=== PATIENT | female | born 1955 | race Caucasian/White ===

== ENCOUNTER 2016-11-27 18:32 | Emergency (ER) | payer OTHER ==
[~2016-11-27] VITALS: Ht 172.7 cm; Wt 49.3 kg
[~2016-11-27 18:32] MED LIST: AMBIEN10 MG PO; AMBIEN5 M1 PO; BABY ASPIRIN81 M1 PO; BENICAR5 MG PO; CARDIZEM30 MG PO; COLACE100 MG PO; CRESTOR10 MG PO; CRESTOR5 MG PO; Cipro PO; FLUOXETINE HCL10 MG PO; HABITROL,NICODE21 MG TD; LIDODERM 5% P1 PATCH TD; LISINOPRIL20 MG PO; PERCOCET 5/31 TABLET PO; PROTONIX40 MG PO; PROZAC40 MG PO; PROzac PO; ROXICODONE5 MG PO; SKELAXIN800 MG PO; TAZTIA XT180 M1 PO; TAZTIA XT360 MG PO; Zocor PO; oxyCODONE PO
[2016-11-27 19:34] VITALS: BP 153/74
[2016-11-27 20:43] LABS: HEMATOCRIT 50.5 % (36.0-46.0); MCH 31.2 PG (29.0-34.0); MCHC 33.1 G/DL (30.0-36.0); MCV 94.4 FL (83-99); PLATELET COUNT 231 K/uL (156-360); RBC DIS.WIDTH-CV 13.2 % (11.8-14.6); RBC DIS.WIDTH-SD 46.1 % (39-53); RED BLOOD COUNT 5.35 M/uL (3.80-5.20); WHITE BLOOD COUNT 8.2 K/uL (4.1-10.2)
[2016-11-27 20:54] LABS: CHLORIDE 108 mEq/L (99-109); POTASSIUM 4.2 mEq/L (3.7-5.4); SODIUM 142 mEq/L (136-147)
[2016-11-27 20:56] LABS: GLUCOSE 74 mg/dL (70-99)
[2016-11-27 20:57] LABS: ANION GAP 9 MEQ/L (2-14)
[2016-11-27 20:58] LABS: TOTAL BILIRUBIN 0.6 mg/dL (0.0-1.0)
[2016-11-27 20:59] LABS: ALKALINE PHOSPHATASE 110 IU/L (3-129)
[2016-11-27 21:00] LABS: GFR ESTIMATE (CALCULATED) > 59 mL/min/
[2016-11-27 21:01] LABS: UREA NITROGEN (BUN) 13 mg/dL (9-23)
== END 2016-11-27 21:05 | disposition left against medical advice (07) ==
LOC: EME 18:32
DX: R53.1 Weakness (principal); Z53.21 Procedure and treatment not carried out due to patient leaving prior to being seen by health care provider
CPT/HCPCS: 80053; 81003; 85027

== ENCOUNTER 2017-03-14 12:04 | Emergency (ER) | payer OTHER ==
[~2017-03-14] VITALS: Ht 172.7 cm; Wt 49.6 kg
[2017-03-14 13:14] LABS: HEMATOCRIT 30.6 % (36.0-46.0); MCH 31.1 PG (29.0-34.0); MCHC 32.4 G/DL (30.0-36.0); MCV 96.2 FL (83-99); MEAN PLAT.VOLUME 11.1 uM^3 (9.5-12.4); PLATELET COUNT 231 K/uL (156-360); RBC DIS.WIDTH-CV 12.7 % (11.8-14.6); RBC DIS.WIDTH-SD 44.9 % (39-53); RED BLOOD COUNT 3.18 M/uL (3.80-5.20); WHITE BLOOD COUNT 13.3 K/uL (4.1-10.2)
[2017-03-14 13:23] LABS: CHLORIDE 107 mEq/L (99-109); POTASSIUM 5.2 mEq/L (3.7-5.4); SODIUM 133 mEq/L (136-147)
[2017-03-14 13:25] LABS: GLUCOSE 114 mg/dL (70-99)
[2017-03-14 13:26] LABS: ANION GAP 7 MEQ/L (2-14)
[2017-03-14 13:29] LABS: GFR ESTIMATE (CALCULATED) > 59 mL/min/
[2017-03-14 13:30] LABS: UREA NITROGEN (BUN) 34 mg/dL (9-23)
[2017-03-14 13:34] LABS: TOTAL BILIRUBIN 0.4 mg/dL (0.0-1.0)
[2017-03-14 13:35] LABS: ALKALINE PHOSPHATASE 78 IU/L (3-129)
[2017-03-14 13:37] LABS: DIRECT BILIRUBIN 0.2 mg/dL (0.0-0.3)
[2017-03-14 13:38] LABS: LIPASE 2 U/L (1.0-51.0)
[2017-03-14 14:06] LABS: TROP-I INTERPRETATION NEGATIVE; TROPONIN-I 0.02 ng/mL (0.0-0.30)
[2017-03-14 18:11] VITALS: BP 100/46
== END 2017-03-14 18:13 | disposition short-term general hospital (02) ==
LOC: EME 12:04
DX: J18.9 Pneumonia, unspecified organism (principal); J44.0 Chronic obstructive pulmonary disease with (acute) lower respiratory infection; R11.2 Nausea with vomiting, unspecified; Z91.11 Patient's noncompliance with dietary regimen; Z98.890 Other specified postprocedural states; I10 Essential (primary) hypertension; E78.5 Hyperlipidemia, unspecified; Z87.891 Personal history of nicotine dependence
CPT/HCPCS: 71020; 80048; 80076; 81003; 83605; 83690; 84484; 85027; 87040; 93005; 94640; 99281; 99285; J0692; J0744; J2270; J7050

== ENCOUNTER 2017-05-26 05:32 | Emergency (ER) | payer OTHER ==
[~2017-05-26] VITALS: Ht 172.7 cm; Wt 45.2 kg
[2017-05-26 06:05] LABS: HEMATOCRIT 39.1 % (36.0-46.0); MCH 29.3 PG (29.0-34.0); MCHC 33.2 G/DL (30.0-36.0); MCV 88.3 FL (83-99); PLATELET COUNT 245 K/uL (156-360); RBC DIS.WIDTH-CV 15.5 % (11.8-14.6); RBC DIS.WIDTH-SD 50.5 % (39-53); RED BLOOD COUNT 4.43 M/uL (3.80-5.20); WHITE BLOOD COUNT 16.7 K/uL (4.1-10.2)
[2017-05-26 06:14] LABS: ALBUMIN 3.9 g/dL (3.2-4.8); CHLORIDE 109 mEq/L (99-109); SODIUM 135 mEq/L (136-147)
[2017-05-26 06:17] LABS: GLUCOSE 111 mg/dL (70-99); TOTAL PROTEIN 7.6 g/dL (6.4-8.3)
[2017-05-26 06:20] LABS: ALKALINE PHOSPHATASE 119 IU/L (3-129); CREATININE 0.9 mg/dL (0.6-1.3); GFR ESTIMATE (CALCULATED) > 59 mL/min/; TOTAL BILIRUBIN 0.6 mg/dL (0.0-1.0)
[2017-05-26 06:21] LABS: UREA NITROGEN (BUN) 19 mg/dL (9-23)
[2017-05-26 06:22] LABS: AST (GOT) 34 IU/L (2-34)
[2017-05-26 06:23] LABS: ALT (GPT) 104 IU/L (3-49)
[2017-05-26 06:24] LABS: LIPASE 6 U/L (1.0-51.0)
[2017-05-26 06:25] LABS: POTASSIUM 4.1 mEq/L (3.7-5.4); TROP-I INTERPRETATION NEGATIVE; TROPONIN-I 0.02 ng/mL (0.0-0.30)
[2017-05-26 09:22] LABS: APPEARANCE CLEAR ((CLEAR)); BILIRUBIN NEGATIVE; BLOOD NEGATIVE; COLOR YELLOW ((YELLOW)); GLUCOSE (STRIP) NEGATIVE; KETONES NEGATIVE; NITRITE NEGATIVE; PROTEIN (STRIP) NEGATIVE; UROBILINOGEN 0.2 MG/DL (0.2-1.0)
[2017-05-26 09:24] LABS: LEUKOCYTES NEGATIVE; UCUL ADDED? NO
[2017-05-26 10:07] VITALS: BP 112/68
[2017-05-26 10:20] LABS: SPECIFIC GRAVITY 1.084 (1.000-1.030)
== END 2017-05-26 10:08 | disposition short-term general hospital (02) ==
LOC: EME 05:32
PROVIDERS: Emergency Medicine
DX: J18.9 Pneumonia, unspecified organism (principal); R10.10 Upper abdominal pain, unspecified; Z90.411 Acquired partial absence of pancreas; M54.9 Dorsalgia, unspecified; R00.0 Tachycardia, unspecified; J43.9 Emphysema, unspecified; R79.1 Abnormal coagulation profile; N28.1 Cyst of kidney, acquired; R93.5 Abnormal findings on diagnostic imaging of other abdominal regions, including retroperitoneum; I10 Essential (primary) hypertension; E78.5 Hyperlipidemia, unspecified; Z87.891 Personal history of nicotine dependence
CPT/HCPCS: 71010; 71275; 74177; 80053; 81003; 83605; 83690; 84484; 85027; 85379; 87040; 87077; 87181; 87801; 93005; 99281; 99285; J2270; J2543; J7030

== ENCOUNTER 2017-09-24 18:00 | Inpatient (IN) | payer OTHER ==
[~2017-09-24] VITALS: Ht 172.7 cm; Wt 49.4 kg
[2017-09-24 20:17] LABS: HEMATOCRIT 39.3 % (36.0-46.0); HEMOGLOBIN 13.3 G/DL (11.9-15.5); MCH 31.7 PG (29.0-34.0); MCHC 33.8 G/DL (30.0-36.0); MCV 93.6 FL (83-99); PLATELET COUNT 190 K/uL (156-360); RBC DIS.WIDTH-CV 13.8 % (11.8-14.6); RBC DIS.WIDTH-SD 47.4 % (39-53); WHITE BLOOD COUNT 11.5 K/uL (4.1-10.2)
[2017-09-24 20:38] LABS: ALBUMIN 3.8 G/DL (3.2-4.8); CHLORIDE 111 MEQ/L (99-109); POTASSIUM 4.6 MEQ/L (3.7-5.4); SODIUM 140 MEQ/L (136-147); TOTAL BILIRUBIN 0.4 MG/DL (0.0-1.0)
[2017-09-24 20:42] LABS: APPEARANCE CLEAR ((CLEAR)); BILIRUBIN NEGATIVE; BLOOD NEGATIVE; COLOR YELLOW ((YELLOW)); GLUCOSE (STRIP) NEGATIVE; KETONES NEGATIVE; LEUKOCYTES MODERATE; NITRITE NEGATIVE; PROTEIN (STRIP) NEGATIVE; SPECIFIC GRAVITY 1.009 (1.000-1.030); UROBILINOGEN 0.2 MG/DL (0.2-1.0)
[2017-09-24 20:43] LABS: ALKALINE PHOSPHATASE 90 IU/L (3-129); ALT (GPT) 45 IU/L (3-49); AST (GOT) 31 IU/L (2-34); CREATININE 0.9 MG/DL (0.6-1.3); GFR ESTIMATE (CALCULATED) > 59 mL/min/; GLUCOSE 90 mg/dL (70-99); TOTAL PROTEIN 6.4 G/DL (6.4-8.3); UREA NITROGEN (BUN) 9 mg/dL (9-23)
[2017-09-24 20:47] LABS: BACTERIA RARE /HPF; EPITHELIAL CELLS NONE SEEN /HPF; MUCUS NONE SEEN /LPF; RED BLOOD CELLS 0-5 /HPF (0-5); UCUL ADDED? YES
[2017-09-24] MEDS ORDERED: LO-DOSE ASPIRIN81 M2 PO (21:02)
[2017-09-24] MEDS ORDERED: FLUOXETINE HCL40 MG PO (21:07)
[2017-09-24] MEDS ORDERED: MEGACE40 MG PO (21:08)
[2017-09-24] MEDS ORDERED: ROSUVASTATIN CA10 MG PO (21:10)
[2017-09-24] MEDS ORDERED: CREON 241 CAPSULE PO (21:11)
[2017-09-24] MEDS ORDERED: OXYCODONE HCL10 MG PO (21:13)
[2017-09-24] MEDS ORDERED: PANTOPRAZOLE SO40 MG PO (21:14)
[2017-09-24] MEDS ORDERED: CARDIZEM CD360 MG PO (21:15)
[2017-09-24 22:51] LABS: SERUM ETHYL ALCOHOL < 10 mg/dL
[2017-09-24 22:57] LABS: AMPHETAMINE NEGATIVE (500 ng/mL); BARBITURATES NEGATIVE (200 ng/mL); BENZODIAZEPINES NEGATIVE (150 ng/mL); BUPRENORPHINE NEGATIVE (10 ng/mL); COCAINE NEGATIVE (150 ng/mL); METHADONE NEGATIVE (200 ng/mL); METHAMPHETAMINE NEGATIVE (500 ng/mL); OPIATES (MORPHINE) NEGATIVE (100 ng/mL); OXYCODONE PRESUMPTIVE POSITIVE (100 ng/mL); PHENCYCLIDINE NEGATIVE (25 ng/mL); PROPOXYPHENE NEGATIVE (300 ng/mL); THC CANNABINOIDS NEGATIVE (50 ng/mL); TRICYCLIC ANTIDEPRESSANTS NEGATIVE (300 ng/mL)
[2017-09-24 23:42] VITALS: BP 171/74
[2017-09-25 00:10] VITALS: BP 142/68
[2017-09-25 04:26] VITALS: BP 168/75
[2017-09-25 08:14] VITALS: BP 135/66
[2017-09-25 09:27] LABS: INTER. NORMALIZED RATIO 1.1
[2017-09-25 09:29] LABS: PTT 32.1 SEC (25-37)
[2017-09-25 15:49] VITALS: BP 141/73
[2017-09-25 19:47] VITALS: BP 125/65
[2017-09-25 23:16] VITALS: BP 134/60
[2017-09-26 04:55] VITALS: BP 133/62
[2017-09-26 06:28] LABS: HEMATOCRIT 35.7 % (36.0-46.0); HEMOGLOBIN 11.9 G/DL (11.9-15.5); MCH 31.2 PG (29.0-34.0); MCHC 33.3 G/DL (30.0-36.0); MCV 93.5 FL (83-99); PLATELET COUNT 170 K/uL (156-360); RBC DIS.WIDTH-SD 48.5 % (39-53); RED BLOOD COUNT 3.82 M/uL (3.80-5.20); WHITE BLOOD COUNT 7.5 K/uL (4.1-10.2)
[2017-09-26 07:08] LABS: CHLORIDE 111 MEQ/L (99-109); CREATININE 0.6 MG/DL (0.6-1.3); GFR ESTIMATE (CALCULATED) > 59 mL/min/; GLUCOSE 68 mg/dL (70-99); POTASSIUM 4.5 MEQ/L (3.7-5.4); SODIUM 144 MEQ/L (136-147); UREA NITROGEN (BUN) 8 mg/dL (9-23)
[2017-09-26 07:47] VITALS: BP 131/63
[2017-09-26 12:00] VITALS: BP 146/62
[2017-09-26 16:55] VITALS: BP 132/61
[2017-09-26 23:29] VITALS: BP 136/68
[2017-09-27] MEDS ORDERED: NICOTINE PATCH1 EAC2 TD (07:29)
[2017-09-27] MEDS ORDERED: VENTOLIN HFA18 GM IH (07:30)
[2017-09-27] MEDS ORDERED: SENNA PLUS TAB1 EACH PO (07:30)
[2017-09-27] MEDS ORDERED: DOCUSATE SODIU100 MG PO (07:30)
[2017-09-27 07:47] VITALS: BP 130/59
[2017-09-27 15:23] VITALS: BP 125/61
[2017-09-28 00:35] VITALS: BP 131/60
[2017-09-28 04:04] VITALS: BP 146/70
[2017-09-28 08:00] VITALS: BP 123/60
== END 2017-09-28 14:32 | disposition home health service (06) | DRG 481 ==
LOC: EME 18:00 → EXP 18:00 → 3EAST 22:01 → EDOF 22:01 → ENRESERV 22:05 → 3EAST 23:24
PROVIDERS: Hospitalist; Internal Medicine; Nurse Practitioner Family; Physician Assistant
PROC: 0QH634Z Insertion of Internal Fixation Device into Right Upper Femur, Percutaneous Approach (ICD-10-PCS; principal; 2017-09-25)
DX: S72.031A Displaced midcervical fracture of right femur, initial encounter for closed fracture (principal); K86.1 Other chronic pancreatitis; K86.81 Exocrine pancreatic insufficiency; R64 Cachexia; Z68.1 Body mass index [BMI] 19.9 or less, adult; S20.411A Abrasion of right back wall of thorax, initial encounter; S50.311A Abrasion of right elbow, initial encounter; W01.0XXA Fall on same level from slipping, tripping and stumbling without subsequent striking against object, initial encounter; Y92.003 Bedroom of unspecified non-institutional (private) residence as the place of occurrence of the external cause; I10 Essential (primary) hypertension; G89.21 Chronic pain due to trauma; M54.5 Low back pain; J44.9 Chronic obstructive pulmonary disease, unspecified; E78.00 Pure hypercholesterolemia, unspecified; E78.5 Hyperlipidemia, unspecified; K21.0 Gastro-esophageal reflux disease with esophagitis; K29.80 Duodenitis without bleeding; I71.2 Thoracic aortic aneurysm, without rupture; K44.9 Diaphragmatic hernia without obstruction or gangrene; K22.70 Barrett's esophagus without dysplasia; K29.70 Gastritis, unspecified, without bleeding; M19.90 Unspecified osteoarthritis, unspecified site; F17.210 Nicotine dependence, cigarettes, uncomplicated; Z79.82 Long term (current) use of aspirin; Z79.891 Long term (current) use of opiate analgesic; Z86.73 Personal history of transient ischemic attack (TIA), and cerebral infarction without residual deficits; Z87.01 Personal history of pneumonia (recurrent); Z86.19 Personal history of other infectious and parasitic diseases; Z90.411 Acquired partial absence of pancreas
CPT/HCPCS: 73010; 73502; 73610; 76000; 80048; 80053; 81003; 82948; 85027; 85610; 85730; 86850; 86900; 86901; 86920; 87086; 94010; 94640; 94640 76; 94799; 97530 GP; 99202; 99281; 99285; C1713; G0480; J0131; J0330; J0690; J1170; J1644; J1650; J1885; J2405; J3010; J7030; J7120